=== PATIENT | male | born 1980 | race Two or more races ===

== ENCOUNTER 2018-05-20 08:36 | Outpatient (CLI) | payer OTHER | END 2018-05-20 08:41 | disposition home or self-care (01) | LOC: SONOGRAMA 08:36 | DX: E04.8 Other specified nontoxic goiter (principal) ==

== ENCOUNTER 2021-04-24 06:53 | Day surgery (SDC) | payer OTHER ==
[~2021-04-24 06:53] MED LIST: SYNTHROID137 MCG PO
[2021-04-24] MEDS ORDERED: ULTRACET PO (09:59)
[2021-04-24] MEDS ORDERED: SURFAK240 M1 PO (09:59)
[2021-04-24] MEDS ORDERED: POLY119PG PO (10:00)
== END 2021-04-24 13:00 | disposition home or self-care (01) ==
LOC: CIR.AMB 06:53
PROVIDERS: ATTEND Surgery
DX: K42.0 Umbilical hernia with obstruction, without gangrene (principal); K43.6 Other and unspecified ventral hernia with obstruction, without gangrene; K80.10 Calculus of gallbladder with chronic cholecystitis without obstruction; Z20.822 Contact with and (suspected) exposure to COVID-19